=== PATIENT | male | born 1955 | race Caucasian/White ===

== ENCOUNTER 2021-02-28 11:50 | Outpatient (CLI) | payer MEDICARE, OTHER ==
[2021-02-28 12:43] LABS: CALCIUM 9.8 mg/dL (8.5-10.3); CREATININE 1.4 mg/dL (0.6-1.2); POTASSIUM 4.5 mmol/L (3.5-5.0)
[2021-02-28] MEDS ORDERED: IOPAMIDOL-300 100 ML VIAL ONE (15:33)
[2021-02-28] MEDS ORDERED: IOPAMIDOL-300 100 ML VIAL IVP ONE (17:56)
--- NOTE | 2021-03-06 14:59 | CT Report ---
PROCEDURE: IVP INDICATIONS: HEMATURIA, right-sided pain CONTRAST: IV CONTRAST: Isovue 300 ml: 140 PO CONTRAST: *NO PO CONTRAST TECHNIQUE: After the administration of intravenous contrast, 5 mm thick sections acquired from the diaphragms to the symphysis. 5 mm thick coronal and sagittal reformats were acquired. For radiation dose reducti on, the following was used: automated exposure control, adjustment of mA and/or kV according to kareem ent size. COMPARISON: None. FINDINGS: Image quality: Excellent. Lung bases: Small 4 mm peripheral nodule noted in the left lung base. Heart size is normal Urinary system: There is delayed enhancement of the right kidney without excretion of contrast into t he collecting system. The renal collecting system and ureter isn't dilated throughout its course, and there is asymmetric irregular bladder wall thickening at the ureter-vesicular junction measuring up to 2.6 cm in thickness and 5.4 cm in length. Left kidney contrast enhancement and excretion is within normal limits. No left renal hydronephrosis. Prostate unremarkable.. There are bilateral renal corti jay cysts measuring up to 2 cm on the right Solid organs: Liver and spleen are normal in size and enhancement. Gallbladder unremarkable. Bilia ry system is non dilated. Pancreas enhances normally. No adrenal nodules. Peritoneum and bowel: Bowel loops demonstrate normal wall thickness and caliber. No free fluid or a ir. Nodes and vessels: No retroperitoneal or mesenteric adenopathy by size criteria. Aorta and inferior vena cava are normal in size. Abdominal wall: No ventral hernias. Right inguinal hernia measures about 2.5 cm in thickness without bowel involvement. Pelvis: No pathologic free pelvic fluid. No inguinal hernias or adenopathy. Bones: No suspicious bony lesions. No vertebral body compression fractures. Advanced degenerative facet arthropathy noted particularly in the lower lumbar spine IMPRESSION: 1. Irregular right-sided bladder wall thickening is suspicious for neoplasm resulting in right-sided moderate to severe right renal obstruction. No evidence of adenopathy or osseous lesions. 2. Small peripheral pulmonary nodule measures 4 mm is likely inflammatory, but should be followed. 3. Advanced lumbar facet arthropathy resulting in moderate to severe bilateral foraminal stenosis at L4-5 and L5-S1. Reviewed by: Herman Velásquez MD on 03/01/2021 8:55 AM PDT Approved by: Herman Velásquez MD on 03/01/2021 8:55 AM PDT Station ID: [id number]
== END 2021-02-28 11:51 | disposition home or self-care (01) ==
LOC: LAB 11:50
PROVIDERS: ATTEND Internal Medicine
DX: R93.41 Abnormal radiologic findings on diagnostic imaging of renal pelvis, ureter, or bladder (principal); R91.1 Solitary pulmonary nodule; M47.817 Spondylosis without myelopathy or radiculopathy, lumbosacral region; M51.37 Other intervertebral disc degeneration, lumbosacral region; M48.07 Spinal stenosis, lumbosacral region; Z79.899 Other long term (current) drug therapy
CPT/HCPCS: 36415; 74178; 80048; Q9967

== ENCOUNTER 2021-03-10 01:56 | Emergency (ER) | payer MEDICARE, OTHER ==
[2021-03-10] MEDS ORDERED: ALPRAZolam 0.25 MG TABLET PO STA (02:37)
--- NOTE | 2021-03-10 02:41 | ED Physician Documentation ---
History of Present Illness - Stated complaint Stated Complaint: MALE - Chief complaint Chief Complaint: Abd Pain - History obtained from History obtained from: Patient - Additonal information Additional information: Patient comes emergency department chief complaint of hematuria And high blood pressure. The patient has been having hematuria on and off for the last few months, and recently had a CT scan of the abdomen and pelvis which showed a suspicious bladder mass. Patient states that he has follow-up with urology coming up in a few days, but that he had an escalation in his bleeding tonight to the point where he passed a few larger clots. He states it seems like it is clearing up a little bit, but patient did feel little bit lightheaded and nauseated. He states that he has a history of hypertension, as well, and just a few days ago was switched from lisinopril to losartan. Patient states he had been stable on lisinopril for years but that his physician felt that losartan was a better medication and wanted to switch him over. Patient states he did not have any side effects on the lisinopril. Patient states that he does not feel the losartan has been working. He states his pressures have been running quite high and this concerns him. When patient woke up and noticed that he had what seemed like a heavy hematuria at around midnight tonight, he also took his blood pressure and found that the systolic was over 200. He states that he took a dose of lisinopril and then decided to come to the emergency department. Patient denies chest pain or shortness of breath. No nausea or vomiting. He states he has been quite anxious about the CT scan findings, especially since he was not able to see a doctor immediately for further information or details. The patient does take bupropion as needed for anxiety. He is not on any anticoagulation. No other complaints at this time. Review of Systems Ten Systems: 10 systems reviewed and negative Constitutional: reports: Reviewed and negative Eyes: reports: Reviewed and negative Ears: reports: Reviewed and negative Nose: reports: Reviewed and negative Throat: reports: Reviewed and negative Cardiac: reports: Reviewed and negative Respiratory: reports: Reviewed and negative GI: reports: Reviewed and negative : reports: Hematuria Skin: reports: Reviewed and negative Musculoskeletal: reports: Reviewed and negative Neurologic: reports: Reviewed and negative Psychiatric: reports: Anxiety Endocrine: reports: Reviewed and negative Immunocompromised: reports: Reviewed and negative PD PAST MEDICAL HISTORY - Past Medical History Past Medical History: Yes Cardiovascular: Hypertension Endocrine/Autoimmune: Type 2 diabetes GI: GERD - Past Surgical History Past Surgical History: Yes - Present Medications Home Medications: Ambulatory Orders Medication Instructions Recorded Confirmed Alprazolam [Xanax] 0.5 mg PO Q6HR PRN #15 tablet 03/10/21 Atorvastatin Calcium 40 mg PO DAILY 03/10/21 03/10/21 Insulin Aspart [NovoLOG] 9 units SUBQ TID 03/10/21 03/10/21 Insulin Glargine [Lantus Solostar] 45 units SUBQ QPM 03/10/21 03/10/21 Rabeprazole Sodium [Aciphex] 20 mg PO DAILY 03/10/21 03/10/21 lisinopriL [Lisinopril] 40 mg PO DAILY 03/10/21 03/10/21 - Allergies Allergies/Adverse Reactions: Allergies Allergy/AdvReac Type Severity Reaction Status Date / Time No Known Drug Allergies Allergy Verified 03/10/21 02:11 - Social History Does the pt smoke?: No Smoking Status: Former smoker Does the pt drink ETOH?: No Does the pt have substance abuse?: No - Immunizations Immunizations are current?: Yes - POLST Patient has POLST: No PD ED PE NORMAL - Vitals Vital signs reviewed: Yes - General General: Alert and oriented X 3, Well developed/nourished, Other (Patient appears somewhat anxious but otherwise no apparent distress) - HEENT HEENT: Atraumatic, PERRL, EOMI, Moist mucous membranes - Neck Neck: Supple, no meningeal sign - Cardiac Cardiac: RRR, No murmur, Strong equal pulses - Respiratory Respiratory: No respiratory distress, Clear bilaterally - Abdomen Abdomen: Soft, Non tender, Non distended - Back Back: No CVA TTP - Derm Derm: Normal color, Warm and dry, No rash - Extremities Extremities: No deformity, No edema, No calf tenderness / cord - Neuro Neuro: Alert and oriented X 3, smoking pipe repairer 2-12 intact, No motor deficit, No sensory deficit, Normal speech, Other (Grossly normal; normal gait.) - Psych Psych: Normal mood, Normal affect Results - Vitals Vitals: Vital Signs - 24 hr 03/10/21 03/10/21 03/10/21 02:00 02:51 03:28 Temperature 36.3 C L 36.6 C Heart Rate 77 70 65 Respiratory 18 16 14 Rate Blood Pressure 200/97 H 188/102 H 151/86 H O2 Saturation 98 96 95 Oxygen O2 Source Room air - Labs Labs: Laboratory Tests 03/10/21 03/10/21 03/10/21 02:35 02:46 02:46 WBC 7.4 RBC 5.51 Hgb 15.6 Hct 48.4 MCV 87.8 MCH 28.3 MCHC 32.2 RDW 13.6 Plt Count 166 MPV 11.6 H Neut # (Auto) 5.3 Lymph # (Auto) 1.3 L [place] # (Auto) 0.7 Eos # (Auto) 0.1 Baso # (Auto) 0.0 Absolute Nucleated RBC 0.00 Nucleated RBC % 0.0 PT 12.4 INR 1.1 Urine Color RED/BLOODY Urine Clarity BLOODY Urine pH 7.0 Ur Specific [place] <=1.005 Urine Protein 100 H Urine Glucose (UA) NEGATIVE Urine Ketones NEGATIVE Urine Occult Blood LARGE H Urine Nitrite NEGATIVE Urine Bilirubin NEGATIVE Urine Urobilinogen 0.2 (NORMAL) Ur Leukocyte Esterase TRACE H Urine RBC TNTC H Urine WBC 0-3 Ur Squamous Epith Cells NONE SEEN Urine Bacteria Rare Ur Microscopic Review INDICATED Urine Culture Comments INDICATED PD MEDICAL DECISION MAKING - ED course Complexity details: reviewed old records, reviewed results, re-evaluated patient, considered differential, d/w patient ED course: I did review the patient's CT scan results from a couple of days ago and found that the patient indeed had been diagnosed with a bladder mass. The patient CBC showed normal white blood cell count and hemoglobin. INR was also within normal limits. The patient had just taken lisinopril prior to coming to the emergency department. I did also give him a dose of Xanax here. The patient's blood pressure was lower than what he reported it being at home. Following the Xanax and also with likely effect from lisinopril, patient's blood pressure did come down to the 150s over 80s after initially being 200 systolic here. I discussed with the patient that it is very important that he have a conversation with his primary care physician about what to do about his blood pressure, and what the game plan should be if the losartan does not seem to be working. As far as his bladder cancer, he does have an appropriate follow-up appointment coming up, which he should keep. There is no evidence of a significant amount of blood loss, as patient is hemodynamically stable and has a normal blood pressure and heart rate. We have discussed the usual indications for return. Departure - Departure Disposition: 01 Home, Self Care Clinical Impression: Poorly-controlled hypertension, Anxiety Hematuria Qualifiers: Hematuria type: gross Qualified Code(s): R31.0 - Gross hematuria Condition: Stable Instructions: ED Hematuria, ED Hypertension Conf Out Of Control, ED Panic Attac k Prescriptions: Alprazolam [Xanax] 0.5 mg PO Q6HR PRN #15 tablet PRN Reason: Anxiety Comments: Your blood work looks good. Your clotting indicators are normal, and your red blood cell levels are also normal. Your blood pressure has improved a little bit with the lisinopril, and given that this has worked well for your blood pressure in the past, it may be best to get back on this and talk to your doctor about whether to continue taking the losartan. Please call first thing tomorrow morning to make a follow-up appointment with your doctor to develop a game plan for your blood pressure medications. Some of your elevated blood pressure may be due to anxiety, both about the acute episode of bleeding tonight, and also about the tumor and uncertainty surrounding that situation. As such, it may be useful to take your bupropion on a daily basis while you were going through this initial phase of sorting out your bladder tumor. We will prescribe a medication to use for breakthrough anxiety if the bupropion does not seem to be helping enough. Please continue your plans to follow-up with the urologist on Thursday. Also be sure to drink plenty of fluid and stay hydrated. Discharge Date/Time: 03/10/21 03:43
[2021-03-10 02:51] LABS: BILIRUBIN,URINE NEGATIVE (NEGATIVE); GLUCOSE, URINE (UA) NEGATIVE (NEGATIVE); KETONES,URINE (UA) NEGATIVE (NEGATIVE); LEUKOCYTE ESTERASE, URINE TRACE (NEGATIVE); NITRITE,URINE NEGATIVE (NEGATIVE); OCCULT BLOOD,URINE LARGE (NEGATIVE); PROTEIN,URINE 100 mg/dL (NEGATIVE); UROBILINOGEN,URINE 0.2 (NORMAL) E.U./dL (NORMAL)
[2021-03-10 02:51] LABS: BASOPHILS % (AUTO) 0.4 %; EOSINOPHILS # (AUTO) 0.1 10^3/uL (0.0-0.7); EOSINOPHILS % (AUTO) 0.9 %; HCT - HEMATOCRIT 48.4 % (42.0-52.0); HGB - HEMOGLOBIN 15.6 g/dL (14.0-18.0); LYMPHOCYTES # (AUTO) 1.3 10^3/uL (1.5-3.5); LYMPHOCYTES % (AUTO) 17.2 %; MEAN CORPUSCULAR HEMOGLOBIN 28.3 pg (27.0-31.0); MEAN CORPUSCULAR HGB CONC 32.2 g/dL (32.0-36.0); MEAN CORPUSCULAR VOLUME 87.8 fL (80.0-94.0); MEAN PLATELET VOLUME 11.6 fL (7.4-11.4); MONOCYTES # (AUTO) 0.7 10^3/uL (0.0-1.0); MONOCYTES % (AUTO) 9.2 %; NEUTROPHILS # (AUTO) 5.3 10^3/uL (1.5-6.6); NEUTROPHILS % (AUTO) 72.2 %; PLT - PLATELET COUNT 166 10^3/uL (130-450); RED BLOOD COUNT 5.51 10^6/uL (4.70-6.10); RED CELL DISTRIBUTION WIDTH 13.6 % (12.0-15.0); WHITE BLOOD COUNT 7.4 x10^3/uL (4.8-10.8)
[2021-03-10 02:53] LABS: CLARITY,URINE BLOODY (CLEAR)
[2021-03-10 02:57] LABS: INR 1.1 (0.8-1.2); PT - PROTHROMBIN TIME 12.4 secs (9.9-12.6)
[2021-03-10 03:01] LABS: RBC,URINE TNTC /HPF (0-5); SQUAMOUS EPITHELIAL CELL,UR NONE SEEN (<= Few); WBC,URINE 0-3 /HPF (0-3)
[2021-03-10 03:02] LABS: BACTERIA,URINE Rare /HPF (None Seen)
[2021-03-10 03:31] VITALS: BP 151/86
== END 2021-03-10 03:43 | disposition home or self-care (01) ==
LOC: ED 01:56
DX: I10 Essential (primary) hypertension (principal); F41.9 Anxiety disorder, unspecified; R31.0 Gross hematuria; D49.4 Neoplasm of unspecified behavior of bladder; E11.9 Type 2 diabetes mellitus without complications; Z79.4 Long term (current) use of insulin; Z87.891 Personal history of nicotine dependence
CPT/HCPCS: 36415; 81001; 85025; 85610; 87086; 99283; 99284; A9270; 81003